=== PATIENT | female | born 1940 | race Caucasian/White ===

== ENCOUNTER → 2017-11-11 05:00 | Outpatient (REF) | payer MEDICARE, SELFPAY ==
[2017-11-11 09:42] LABS: Hematocrit 37.1 % (37-47); Hemoglobin 12.3 g/dl (12.0-15.0); Mean Corp Hgb Conc 33.2 g/gl (32-36); Mean Corpuscular Hgb 29.5 pg (27.0-32.0); Mean Platelet Vol. 10.5 fl (6.2-12.0); Platelet Count 102 K/mm3 (150-450); RBC Distribution Width CV 13.6 % (11.6-14.6); RBC Distribution Width SD 43.9 fl (35.1-43.9); Red Blood Count 4.17 M/mm3 (4.2-5.4); White Blood Count 4.1 K/mm3 (4.4-11.0)
[2017-11-11 09:47] LABS: Scan Indicated on CBC? Y/N NO
[2017-11-11 09:54] LABS: Anion Gap 9 (5-15); BUN 26 mg/dL (7-18); BUN/Creat Ratio 18.2 RATIO (10-20); Calcium,Total 8.3 mg/dL (8.5-10.1); Chloride 109 mmol/L (98-107); Creatinine, Serum 1.43 mg/dL (0.55-1.02); EST Glomerular Filtration Rate 38 mL/min (>60); Est Glom Filt Rate - Afr Amer 46 mL/min (>60); Glucose 79 mg/dL (74-106); Potassium 4.1 mmol/L (3.5-5.1); Sodium Level 146 mmol/L (136-145)
== END ==
LOC: OLS.WCC 05:00
PROVIDERS: Visit Provider Family Medicine
DX: I10 Essential (primary) hypertension (principal); Z79.899 Other long term (current) drug therapy
CPT/HCPCS: 36415; 80048; 85027

== ENCOUNTER → 2018-05-21 06:00 | Outpatient (REF) | payer MEDICARE, SELFPAY ==
[2018-05-21 08:40] LABS: Hematocrit 42.8 % (37-47); Hemoglobin 13.8 g/dl (12.0-15.0); Mean Corp Hgb Conc 32.2 g/gl (32-36); Mean Corpuscular Hgb 29.2 pg (27.0-32.0); Mean Corpuscular Volume 90.5 fL (81-99); Mean Platelet Vol. 10.2 fl (6.2-12.0); Platelet Count 113 K/mm3 (150-450); RBC Distribution Width SD 45.7 fl (35.1-43.9); Red Blood Count 4.73 M/mm3 (4.2-5.4); White Blood Count 4.7 K/mm3 (4.4-11.0)
[2018-05-21 08:41] LABS: Scan Indicated on CBC? Y/N NO
[2018-05-21 08:47] LABS: Anion Gap 7 (5-15); BUN 20 mg/dL (7-18); BUN/Creat Ratio 12.5 RATIO (10-20); Calcium,Total 8.8 mg/dL (8.5-10.1); Chloride 107 mmol/L (98-107); EST Glomerular Filtration Rate 33 mL/min (>60); Est Glom Filt Rate - Afr Amer 40 mL/min (>60); Glucose 85 mg/dL (74-106); Potassium 4.6 mmol/L (3.5-5.1); Sodium Level 142 mmol/L (136-145)
--- OUTSIDE RECORDS SUMMARY | 2018-07-25 21:53 | XMS RPT_ITS ---
:1940 Author Organization [facility] Care Team Providers Name Role Phone Ben Martinez Attending Unavailable Ben Martinez Attending Unavailable PROBLEMS PROBLEMS DATE TYPE CONDITION / CODE ATTENDING STATUS SOURCE 01/24/2018 Unknown I10 - Essential [facility] / [facility] I10(ICD-10) Repository 01/24/2018 Unknown Z79.899 - Other [facility] (current[facility] drug Hospital therapy / Repository Z79.899(ICD-10) PROCEDURES PROCEDURES No Procedure Records FoundRESULTS RESULTS CBC-COMPLETE BLOOD CNT Collected: 05/21/2018 Status: F Source: [place] NO DIFF 7:35 AM [facility] REPOSITORY Order Comment: ROOM 101 TYPE CODE TESTS RESULT OUT OF RANGE REFERENCE UNITS LAB L100.1000 4.4-11.0 K/mm3 Normal WBC 4.7 LAB L100.1200 4.2-5.4 M/mm3 Normal RBC 4.73 LAB L100.1300 12.0-15.0 g/dl Normal HGB 13.8 LAB L100.1400 37-47 % Normal HCT 42.8 LAB L100.1500 81-99 fL Normal MCV 90.5 LAB L100.1600 27.0-32.0 pg Normal MCH 29.2 LAB L100.1700 32-36 g/gl Normal MCHC 32.2 LAB L100.1810 11.6-14.6 % Normal RDW CV 14.0 LAB L100.1820 35.1-43.9 fl High RDW SD 45.7 LAB L100.1900 150-450 K/mm3 Low PLT 113 LAB L100.2000 6.2-12.0 fl Normal MPV 10.2 Performed By: #### L100.0500 #### [facility] [address] [place], [place], [address] BASIC METABOLIC Collected: 05/21/2018 Status: F Source: [place] PROFILE (BMP) 7:35 AM [facility] REPOSITORY Order Comment: ROOM 101 TYPE CODE TESTS RESULT OUT OF RANGE REFERENCE UNITS LAB L501.0100 74-106 mg/dL Normal GLU 85 Result Comment: Please note revised GLUCOSE reference range effective 2017. LAB L501.1000 7-18 mg/dL High BUN 20 LAB L501.1100 0.55-1.02 mg/dL High CREAT,SERUM 1.60 Result Comment: The validity of the calculated GFR AND GFRAA in patients over 70 years has not been determined. Clinical correlation is essential. LAB L501.1110 >60 mL/min Low EST GFR 33 Result Comment: Non- GFR Calc LAB L501.1115 >60 mL/min Low EST GFR - AA 40 Result Comment: GFR Calc LAB L501.1300 10-20 RATIO Normal BUN/CRE 12.5 LAB L501.2200 8.5-10.1 mg/dL CA Normal 8.8 LAB L501.5300 136-145 mmol/L NA Normal 142 LAB L501.5600 3.5-5.1 mmol/L K Normal 4.6 LAB L501.5900 98-107 mmol/L CL Normal 107 LAB L501.6100 21.0-32.0 mmol/L Normal CO2 28.0 LAB L501.6200 5-15 Normal GAP 7 Performed By: #### L500.2500 #### [facility] [address] [place], [place], [address] CBC-COMPLETE BLOOD CNT Collected: 11/11/2017 Status: F Source: [place] NO DIFF 7:15 AM [facility] REPOSITORY Order Comment: 101-2 TYPE CODE TESTS RESULT OUT OF RANGE REFERENCE UNITS LAB L100.1000 4.4-11.0 K/mm3 Low WBC 4.1 LAB L100.1200 4.2-5.4 M/mm3 Low RBC 4.17 LAB L100.1300 12.0-15.0 g/dl Normal HGB 12.3 LAB L100.1400 37-47 % Normal HCT 37.1 LAB L100.1500 81-99 fL Normal MCV 89.0 LAB L100.1600 27.0-32.0 pg Normal MCH 29.5 LAB L100.1700 32-36 g/gl Normal MCHC 33.2 LAB L100.1810 11.6-14.6 % Normal RDW CV 13.6 LAB L100.1820 35.1-43.9 fl Normal RDW SD 43.9 LAB L100.1900 150-450 K/mm3 Low PLT 102 LAB L100.2000 6.2-12.0 fl Normal MPV 10.5 Performed By: #### L100.0500 #### [facility] [address] [place], [address] BASIC METABOLIC Collected: 11/11/2017 Status: F Source: [place] [facility]FILE ([facility]) 7:15 AM [facility] REPOSITORY Order Comment: 101-2 TYPE CODE TESTS RESULT OUT OF RANGE REFERENCE UNITS LAB L501.0100 74-106 mg/dL Normal GLU 79 Result Comment: Please note revised GLUCOSE reference range effective 2017. LAB L501.1000 7-18 mg/dL High BUN 26 LAB L501.1100 0.55-1.02 mg/dL High CREAT,SERUM 1.43 Result Comment: The validity of the calculated GFR AND GFRAA in patients over 70 years has not been determined. Clinical correlation is essential. LAB L501.1110 >60 mL/min Low EST GFR 38 Result Comment: Non- GFR Calc LAB L501.1115 >60 mL/min Low EST GFR - AA 46 Result Comment: GFR Calc LAB L501.1300 10-20 RATIO Normal BUN/CRE 18.2 LAB L501.2200 8.5-10.1 mg/dL Low CA 8.3 LAB L501.5300 136-145 mmol/L High NA 146 LAB L501.5600 3.5-5.1 mmol/L K Normal 4.1 LAB L501.5900 98-107 mmol/L High CL 109 LAB L501.6100 21.0-32.0 mmol/L Normal CO2 28.0 LAB L501.6200 5-15 Normal GAP 9 Performed By: #### L500.2500 #### [facility] [address], [address] ALLERGIES ALLERGIES No Allergies Records FoundENCOUNTERS ENCOUNTERS ADMIT/DISCHARGE ACCOUNT ADMITTING ENCOUNTER LOCATION SOURCE NUMBER CLASS 05/21/2018 [id number] [facility] ing[facility] Repository 11/11/2017 [id number] Ambulatory [facility] ing:[facility] Repository PAYERS PAYERS ENCOUNTER GUARANTOR PAYER SUBSCRIBER SOURCE 05/21/2018 Jolie Primary NOT GIVENUNK [place] [id number] Insurance:SELF PAY [facility] RDC/O JORGE LUIS Number: [facility] [place] Date:2018-05-21 [id number]: () 11/11/2017 Jolie Primary Jolie Dueñas [id number] Insurance:MEDICARE [place]DOB: [facility] PART A BPolic [id number] RDC/O JORGE LUIS Number: Repository [place], [place] [id number]: ([phone]) Date:2017-11-11 [phone] () 11/11/2017 Secondary NOT GIVENUNK [place] Insurance:SELF PAY [facility] Number: Effective Repository Date:2017-11-11
== END ==
LOC: OLS.WCC 06:00
PROVIDERS: Visit Provider Family Medicine
DX: I10 Essential (primary) hypertension (principal); Z79.899 Other long term (current) drug therapy
CPT/HCPCS: 36415; 80048; 85027

== ENCOUNTER → 2018-11-18 | Outpatient (REF) | payer MEDICARE, SELFPAY ==
[2018-11-18 08:04] LABS: Anion Gap 4 (5-15); BUN 29 mg/dL (7-18); BUN/Creat Ratio 14.9 RATIO (10-20); Calcium,Total 8.8 mg/dL (8.5-10.1); Chloride 110 mmol/L (98-107); Creatinine, Serum 1.95 mg/dL (0.55-1.02); EST Glomerular Filtration Rate 26 mL/min (>60); Est Glom Filt Rate - Afr Amer 32 mL/min (>60); Glucose 86 mg/dL (74-106); Potassium 4.4 mmol/L (3.5-5.1); Sodium Level 142 mmol/L (136-145)
[2018-11-18 08:26] LABS: Hemoglobin 12.4 g/dL (12.0-15.0); Mean Corp Hgb Conc 32.6 g/dL (32-36); Mean Corpuscular Hgb 30.8 pg (27.0-32.0); Mean Corpuscular Volume 94.3 fL (81-99); Mean Platelet Vol. 9.8 fl (6.2-12.0); Platelet Count 95 K/mm3 (150-450); RBC Distribution Width CV 13.2 % (11.6-14.6); RBC Distribution Width SD 45.3 fl (35.1-43.9); Red Blood Count 4.03 M/mm3 (4.2-5.4); White Blood Count 4.5 K/mm3 (4.4-11.0)
== END | disposition home or self-care (01) ==
LOC: OLS.WCC 05:00
PROVIDERS: Visit Provider Family Medicine
DX: I10 Essential (primary) hypertension (principal); Z79.899 Other long term (current) drug therapy
CPT/HCPCS: 36415; 80048; 85027

== ENCOUNTER → 2019-05-21 05:00 | Outpatient (REF) | payer MEDICARE, SELFPAY ==
[2019-05-21 07:31] LABS: Hematocrit 36.7 % (37-47); Hemoglobin 11.6 g/dL (12.0-15.0); Mean Corp Hgb Conc 31.6 g/dL (32-36); Mean Corpuscular Hgb 30.1 pg (27.0-32.0); Mean Corpuscular Volume 95.1 fL (81-99); Mean Platelet Vol. 9.5 fl (6.2-12.0); Platelet Count 105 K/mm3 (150-450); RBC Distribution Width CV 13.1 % (11.6-14.6); RBC Distribution Width SD 45.5 fl (35.1-43.9); Red Blood Count 3.86 M/mm3 (4.2-5.4); White Blood Count 5.8 K/mm3 (4.4-11.0)
[2019-05-21 07:43] LABS: Anion Gap 4 (5-15); BUN 21 mg/dL (7-18); BUN/Creat Ratio 11.9 RATIO (10-20); Calcium,Total 8.4 mg/dL (8.5-10.1); Chloride 107 mmol/L (98-107); Creatinine, Serum 1.76 mg/dL (0.55-1.02); EST Glomerular Filtration Rate 30 mL/min (>60); Est Glom Filt Rate - Afr Amer 36 mL/min (>60); Glucose 87 mg/dL (74-106); Potassium 4.1 mmol/L (3.5-5.1); Sodium Level 139 mmol/L (136-145)
== END ==
LOC: OLS.WCC 05:00
PROVIDERS: Visit Provider Family Medicine
DX: I10 Essential (primary) hypertension (principal); Z79.899 Other long term (current) drug therapy
CPT/HCPCS: 36415; 80048; 85027

== ENCOUNTER → 2019-06-01 04:00 | Outpatient (REF) | payer MEDICARE, MEDICAID, SELFPAY ==
[2019-06-01 07:57] LABS: Hematocrit 33.4 % (37-47); Hemoglobin 10.9 g/dL (12.0-15.0); Mean Corp Hgb Conc 32.6 g/dL (32-36); Mean Corpuscular Hgb 30.1 pg (27.0-32.0); Mean Corpuscular Volume 92.3 fL (81-99); NRBC Flagged by Analyzer 0 % (0-5); POSITIVE COUNT YES; POSITIVE DIFFERENTIAL YES; POSITIVE MORPHOLOGY YES; Platelet Count 96 K/mm3 (150-450); RBC Distribution Width CV 13.3 % (11.6-14.6); RBC Distribution Width SD 45.1 fl (35.1-43.9); Red Blood Count 3.62 M/mm3 (4.2-5.4); White Blood Count 19.6 K/mm3 (4.4-11.0)
[2019-06-01 08:11] LABS: Anion Gap 7 (5-15); BUN 29 mg/dL (7-18); BUN/Creat Ratio 16.4 RATIO (10-20); Calcium,Total 8.3 mg/dL (8.5-10.1); Chloride 100 mmol/L (98-107); Creatinine, Serum 1.77 mg/dL (0.55-1.02); EST Glomerular Filtration Rate 30 mL/min (>60); Est Glom Filt Rate - Afr Amer 36 mL/min (>60); Glucose 97 mg/dL (74-106); Potassium 3.7 mmol/L (3.5-5.1); Sodium Level 131 mmol/L (136-145)
[2019-06-01 08:12] LABS: Differential Indicated SCAN CRITERIA MET
[2019-06-01 08:43] LABS: Scan Smear per Review Criteria MANUAL DIFF
[2019-06-01 08:46] LABS: Lymphocyte 3 % (19-41); Metamyelocyte 6 % (0-1); Monocyte 3 % (0-10); Neutrophil-Band 11 % (0-5); Neutrophil-Segmented 77 % (47-70); Total Cells Counted 100 (MANUAL DIFF)
[2019-06-01 08:47] LABS: Hypochromasia RARE; Platelet Estimate MOD (ADEQ); Red Cell Morphology N CYTIC NORMAL (NORM C&C)
[2019-06-01 08:49] LABS: Absolute Lymphocyte Count 0.59 X10^3/uL (0.83-4.51)
[2019-06-02 00:50] LABS: Lymphocyte # 0.59 X10^3/ul (4.0)
[2019-06-02 15:28] LABS: Pathologist Review Reviewed
== END ==
LOC: OLS.WCC 04:00
PROVIDERS: Visit Provider Family Medicine
DX: R50.9 Fever, unspecified (principal); R53.83 Other fatigue
CPT/HCPCS: 36415; 80048; 85025; 87633

== ENCOUNTER → 2019-06-04 05:00 | Outpatient (REF) | payer MEDICARE, MEDICAID, SELFPAY ==
[2019-06-04 07:56] LABS: Absolute Lymphocyte Count 0.99 X10^3/uL (0.83-4.51); Basophil# 0.02 X10^3/uL; Basophil% 0.4 % (0-1); Eosinophil# 0.18 X10^3/uL; Eosinophils% 3.2 % (0-5); Hematocrit 34.2 % (37-47); Hemoglobin 10.8 g/dL (12.0-15.0); Lymphocyte # 0.99 X10^3/ul (4.0); Lymphocyte % 17.6 % (19-41); Mean Corp Hgb Conc 31.6 g/dL (32-36); Mean Corpuscular Hgb 30.1 pg (27.0-32.0); Mean Corpuscular Volume 95.3 fL (81-99); Mean Platelet Vol. 9.5 fl (6.2-12.0); Monocyte# 0.34 X10^3/uL; NRBC Flagged by Analyzer 0 % (0-5); Neutrophil % 70.8 % (47-70); Platelet Count 121 K/mm3 (150-450); RBC Distribution Width CV 13.3 % (11.6-14.6); RBC Distribution Width SD 46.4 fl (35.1-43.9); Red Blood Count 3.59 M/mm3 (4.2-5.4); White Blood Count 5.6 K/mm3 (4.4-11.0)
[2019-06-04 08:22] LABS: Anion Gap 4 (5-15); BUN 19 mg/dL (7-18); BUN/Creat Ratio 11.7 RATIO (10-20); Calcium,Total 8.9 mg/dL (8.5-10.1); Chloride 110 mmol/L (98-107); Creatinine, Serum 1.63 mg/dL (0.55-1.02); EST Glomerular Filtration Rate 32 mL/min (>60); Est Glom Filt Rate - Afr Amer 39 mL/min (>60); Glucose 83 mg/dL (74-106); Sodium Level 142 mmol/L (136-145)
== END ==
LOC: OLS.WCC 05:00
PROVIDERS: Visit Provider Family Medicine
DX: R50.9 Fever, unspecified (principal)
CPT/HCPCS: 36415; 80048; 85025

== ENCOUNTER → 2019-11-18 05:00 | Outpatient (REF) | payer MEDICARE, MEDICAID, SELFPAY ==
[2019-11-18 07:05] LABS: Hematocrit 36.5 % (37-47); Hemoglobin 11.7 g/dL (12.0-15.0); Mean Corp Hgb Conc 32.1 g/dL (32-36); Mean Corpuscular Hgb 30.4 pg (27.0-32.0); Mean Corpuscular Volume 94.8 fL (81-99); Mean Platelet Vol. 9.9 fl (6.2-12.0); Platelet Count 100 K/mm3 (150-450); RBC Distribution Width SD 44.5 fl (35.1-43.9); Red Blood Count 3.85 M/mm3 (4.2-5.4); White Blood Count 4.6 K/mm3 (4.4-11.0)
[2019-11-18 07:16] LABS: Anion Gap 5 (5-15); BUN 21 mg/dL (7-18); BUN/Creat Ratio 12.4 RATIO (10-20); Calcium,Total 8.1 mg/dL (8.5-10.1); Chloride 108 mmol/L (98-107); Creatinine, Serum 1.69 mg/dL (0.55-1.02); EST Glomerular Filtration Rate 31 mL/min (>60); Est Glom Filt Rate - Afr Amer 38 mL/min (>60); Glucose 85 mg/dL (74-106); Sodium Level 140 mmol/L (136-145)
== END ==
LOC: OLS.WCC 05:00
PROVIDERS: Referring Provider Family Medicine; Visit Provider Family Medicine
DX: I10 Essential (primary) hypertension (principal)
CPT/HCPCS: 36415; 80048; 85027

== ENCOUNTER → 2019-12-30 14:13 | Outpatient (REF) | payer MEDICARE, MEDICAID, SELFPAY | LOC: OLS.WCC 14:13 | PROVIDERS: Referring Provider Family Medicine; Visit Provider Family Medicine | DX: Z20.828 Contact with and (suspected) exposure to other viral communicable diseases (principal) | CPT/HCPCS: 87635; U0003 ==

== ENCOUNTER → 2020-05-20 05:00 | Outpatient (REF) | payer MEDICARE, MEDICAID, SELFPAY ==
[2020-05-20 08:18] LABS: Hematocrit 36.3 % (37-47); Hemoglobin 11.4 g/dL (12.0-15.0); Mean Corp Hgb Conc 31.4 g/dL (32-36); Mean Corpuscular Volume 95.5 fL (81-99); Platelet Count 102 K/mm3 (150-450); RBC Distribution Width CV 13.3 % (11.6-14.6); RBC Distribution Width SD 46.7 fl (35.1-43.9); White Blood Count 3.6 K/mm3 (4.4-11.0)
[2020-05-20 08:31] LABS: Anion Gap 3 (5-15); BUN 23 mg/dL (7-18); BUN/Creat Ratio 14.8 RATIO (10-20); Calcium,Total 8.3 mg/dL (8.5-10.1); Chloride 110 mmol/L (98-107); Creatinine, Serum 1.55 mg/dL (0.55-1.02); EST Glomerular Filtration Rate 34 mL/min (>60); Est Glom Filt Rate - Afr Amer 42 mL/min (>60); Glucose 88 mg/dL (74-106); Sodium Level 141 mmol/L (136-145)
== END ==
LOC: OLS.WCC 05:00
PROVIDERS: Visit Provider Family Medicine
DX: I10 Essential (primary) hypertension (principal)
CPT/HCPCS: 36415; 80048; 85027

== ENCOUNTER → 2020-11-18 05:00 | Outpatient (REF) | payer MEDICARE, MEDICAID, SELFPAY ==
[2020-11-18 08:12] LABS: Hematocrit 41.5 % (37-47); Hemoglobin 13.3 g/dL (12.0-15.0); Mean Corpuscular Hgb 30.4 pg (27.0-32.0); Mean Platelet Vol. 9.8 fl (6.2-12.0); Platelet Count 151 K/mm3 (150-450); RBC Distribution Width CV 13.2 % (11.6-14.6); RBC Distribution Width SD 46.5 fl (35.1-43.9); Red Blood Count 4.37 M/mm3 (4.2-5.4); White Blood Count 6.8 K/mm3 (4.4-11.0)
[2020-11-18 08:20] LABS: Anion Gap 4 (5-15); BUN 28 mg/dL (7-18); BUN/Creat Ratio 15.4 RATIO (10-20); Calcium,Total 8.8 mg/dL (8.5-10.1); Chloride 106 mmol/L (98-107); Creatinine, Serum 1.82 mg/dL (0.55-1.02); EST Glomerular Filtration Rate 29 mL/min (>60); Est Glom Filt Rate - Afr Amer 34 mL/min (>60); Glucose 87 mg/dL (74-106); Potassium 3.8 mmol/L (3.5-5.1); Sodium Level 138 mmol/L (136-145)
== END ==
LOC: OLS.WCC 05:00
PROVIDERS: Visit Provider Family Medicine
DX: I10 Essential (primary) hypertension (principal); Z79.899 Other long term (current) drug therapy
CPT/HCPCS: 36415; 80048; 85027

== ENCOUNTER → 2021-05-22 | Outpatient (REF) | payer MEDICARE, MEDICAID, SELFPAY ==
[2021-05-22 09:51] LABS: Hematocrit 38.5 % (37-47); Hemoglobin 12.3 g/dL (12.0-15.0); Mean Corp Hgb Conc 31.9 g/dL (32-36); Mean Corpuscular Hgb 27.8 pg (27.0-32.0); Mean Corpuscular Volume 86.9 fL (81-99); Mean Platelet Vol. 10.3 fl (6.2-12.0); Platelet Count 113 K/mm3 (150-450); RBC Distribution Width CV 13.2 % (11.6-14.6); RBC Distribution Width SD 41.9 fl (35.1-43.9); Red Blood Count 4.43 M/mm3 (4.2-5.4); White Blood Count 5.3 K/mm3 (4.4-11.0)
[2021-05-22 10:02] LABS: Anion Gap 4 (5-15); BUN 19 mg/dL (7-18); BUN/Creat Ratio 12.5 RATIO (10-20); Chloride 107 mmol/L (98-107); Creatinine, Serum 1.52 mg/dL (0.55-1.02); EST Glomerular Filtration Rate 35 mL/min (>60); Est Glom Filt Rate - Afr Amer 42 mL/min (>60); Glucose 89 mg/dL (74-106); Potassium 3.6 mmol/L (3.5-5.1); Sodium Level 139 mmol/L (136-145)
== END | disposition home or self-care (01) ==
LOC: OLS.WCC 05:00
PROVIDERS: Visit Provider Family Medicine
DX: I10 Essential (primary) hypertension (principal); F03.90 Unspecified dementia, unspecified severity, without behavioral disturbance, psychotic disturbance, mood disturbance, and anxiety
CPT/HCPCS: 36415; 80048; 85027

== ENCOUNTER → 2021-05-29 | Outpatient (REF) | payer MEDICARE, MEDICAID, SELFPAY | END | disposition home or self-care (01) | LOC: OLS.WCC 15:43 | PROVIDERS: Visit Provider Family Medicine | DX: Z20.822 Contact with and (suspected) exposure to COVID-19 (principal) | CPT/HCPCS: 87635; U0003; U0005 ==

== ENCOUNTER 2021-08-02 12:37 | Outpatient (CLI) | payer MEDICARE, OTHER, MEDICAID, SELFPAY ==
--- NOTE | 2021-08-02 13:44 | SP.MBSS_ITS ---
Modified Barium Swallow - Patient Information Study Date: 08/02/21 Study Time: 13:00 Direct Billable Minutes: 40 Total Minutes procedure & reportin Diagnosis: Parkinson's disease G20, Dementia w/ behavioral disturb. F02.81 Referring Physician: Ben Martinez Reason for Referral: Objectively assess swallow function, risk for aspiration, and determine recommendations for least restrictive diet textures and compensatory strategies to improve safety of swallow. Medical History: The patient is a 80 year old female with PMH including PD, dementia unspecified with behavioral disturbance, delusional disorders, generalized anxiety disorder (SEE chart for full PMH). Recent history for dysphagia taken from INTERMEDIATE MANAGERLouie, who was present for the study. Pt denied difficulty swallowing. Louie reported oral holding of liquids and solids, anterior spillage of liquids, poor oral clearance of solids. She is currently on Regular textures / Thin liquids at her care facility - [facility]. Current Diet Ordered: Regular / Thin Mental Status: Impaired Respiratory Status: Oxygenating on Room Air - Penetration-Aspiration Scale Penetration-Aspiration Scale: OBJECTIVE ASSESSMENT OF SWALLOW FUNCTION (QUANTITATIVE ? PER TRIAL): PENETRATION / ASPIRATION SCALE (CASTRO): 1 = does not enter airway 2 = enters airway/above vocal folds/ejected 3 = enters airway/above vocal folds/not ejected 4 = enters airway/contacts vocal folds/ejected 5 = enters airway/contacts vocal folds/not ejected 6 = enters airway/below vocal folds/ejected 7 = enters airway/below vocal folds/not ejected despite effort 8 = enters airway/below vocal folds/no effort VIDEOFLOROSCOPIC SCALE SCORE (CASTRO): Grade I = aspiration of material that has penetrated into the laryngeal vestibule, intact cough reflex Grade II = aspiration < 10 % of the bolus, intact cough reflex Grade III = aspiration of < 10 % of the bolus, reduced cough reflex or aspiration of > 10 % of the bolus, intact cough reflex Grade IV = aspiration of > 10 % of the bolus, reduced cough reflex - Penetration-Aspiration Scale Score Thin Liquid via teaspoon Comment: Unable to score - Oral holding with eventual expectoration of bolus. Thin Liquid via teaspoon Trial 2 Comment: Unable to score - Oral holding with eventual expectoration of bolus. Water per patient request Comment: Attempted to assess water under fluoroscopy to see pt swallow oral residues of previous barium liquid trials. Unable to score - Oral holding with eventual expectoration of bolus. - Oral Phase Labial Seal: No Labial Escape Tongue Control During Bolus Hold: Escape to lateral buccal cavity/floor of mouth Oral Residue: Trace residue lining oral structures - Treatment Strategies Effects of treatment strategies attemped:: N/A - Diagnosis/Impression Diagnosis: Inconclusive. Impression: The patient demonstrated oral holding and would not swallow barium trials, despite encouragement from TELEHEALTH COORDINATOR, INTERMEDIATE MANAGER, and security technician. TELEHEALTH COORDINATOR provided repeated education re: rationale for study to assess risk for aspiration, decrease risk for aspiration related illnesses (e.g PNA), and determine overall safety of swallow. Pt not agreeable to swallow trials, including water provided to pt per pt request. TELEHEALTH COORDINATOR and INTERMEDIATE MANAGER encouraged the patient to participate per request of her grandson, Aron, as well as per her physician's request. - Recommendations Comment: Inconclusive study due to limited participation. SEE impressions above. Need for Skilled Speech Therapy Services: Yes Comment: Will recommend speech therapy services to follow patient for assessment of diet tolerance at [facility], as well as, assessment and training in strategies to decrease aspiration risk. - Status Active ST Patient: Active - Contact Information [facility] Speech Therapy:: Leyla Brown M.A. [facility]-TELEHEALTH COORDINATOR Speech-Language Pathologist [facility] [address] [place] [address] [email or web address] [phone] 08/02/21 13:59
== END 2021-08-02 23:59 | disposition home or self-care (01) ==
LOC: RAD 12:40
PROVIDERS: PCP Family Medicine; Visit Provider Family Medicine
DX: G20 Parkinson's disease (principal)
CPT/HCPCS: 74230; 92611